=== PATIENT | female | born 1955 | race Caucasian/White ===

== ENCOUNTER 2019-05-28 06:15 | Inpatient (IN) | payer OTHER ==
[~2019-05-28] VITALS: Ht 154.9 cm; Wt 88.0 kg
[2019-05-28] MEDS ORDERED: CEFAZOLIN 1 GM IVPB PREMIX 50 ML IV ONE (07:00)
[2019-05-28] MEDS ORDERED: cefOXitin SODIUM 2 GM in D5W 100 ML IV ONE (07:00)
[2019-05-28] MEDS ORDERED: ALVIMOPAN 12 MG CAPSULE PO ONE (07:00)
[2019-05-28] MEDS ORDERED: FENT2mCg/mL-ROPIVA0.2%/NS EPID 200 ML EP SCH (08:30)
[2019-05-28] MEDS ORDERED: fentaNYL CITRATE/PF 100 MCG/2 ML AMP IVP PRN ×2 (08:30)
[2019-05-28] MEDS ORDERED: ONDANSETRON HCL 4 MG/2 ML VIAL IVP PRN ×2 (08:30→15:30)
[2019-05-28] MEDS ORDERED: NALBUPHINE HCL 10 MG/ML AMP IVP PRN (08:30)
[2019-05-28] MEDS ORDERED: NALOXONE HCL 0.4 MG/ML AMP (NARCAN) IVP PRN (08:30)
[2019-05-28] MEDS ORDERED: DIPHENHYDRAMINE INJ 50 MG/ML VIAL IVP PRN (08:30)
[2019-05-28] MEDS ORDERED: ALBMDI INH (08:52)
[2019-05-28] MEDS ORDERED: MONT10TA22 PO (08:52)
[2019-05-28] MEDS ORDERED: FLUT12AE5 INH (08:52)
[2019-05-28] MEDS ORDERED: METOCLOPRAMIDE HCL 10 MG/2 ML VIAL IVP ONE (08:56)
[2019-05-28] MEDS ORDERED: EPINEPHrine 1 MG/ML AMP SUBCUT ONE (08:56)
[2019-05-28] MEDS ORDERED: SEVOFLURANE 15 MIN GAS INH ONE ×2 (08:56→12:30)
[2019-05-28] MEDS ORDERED: PHENYLEPHRINE HCL 10 MG/ML VIAL (NEOSYNEPHRINE) IV ONE (08:56)
[2019-05-28] MEDS ORDERED: ROCURONIUM BROMIDE 10 MG/ML (ZEMURON) IV ONE ×2 (08:56→12:30)
[2019-05-28] MEDS ORDERED: KETOROLAC TROMETHAMINE 30 MG VIAL IVP ONE (08:56)
[2019-05-28] MEDS ORDERED: LR 1,000 ML IV.SOLN IV ONE ×2 (08:56→12:30)
[2019-05-28] MEDS ORDERED: ROPIVACAINE HCL/PF 0.2% EPIDURAL 200 ML PLAST..BAG EP ONE (08:56)
[2019-05-28] MEDS ORDERED: GLYCOPYRROLATE 0.2 MG/ML VIAL IJ ONE (08:56)
[2019-05-28] MEDS ORDERED: PROPOFOL 200MG/ 20ML VIAL (DIPRIVAN) IV ONE ×2 (08:56→12:30)
[2019-05-28] MEDS ORDERED: FENT2mCg/mL-ROPIVA0.2%/NS EPID 200 ML EP ONE (12:30)
[2019-05-28] MEDS ORDERED: NS 1000 ML IV.SOLN IV ONE (12:30)
[2019-05-28] MEDS ORDERED: WATER FOR IRRIGATION,STERILE 1,000 ML IRRIG.SOLN IR ONE (12:30)
[2019-05-28] MEDS ORDERED: PIPERACILLIN/TAZOBACTAM 3.375 GM/VIAL (ZOSYN) IV ONE (12:30)
[2019-05-28] MEDS ORDERED: NS IRRIG SOLN 1000 ML IR ONE (12:30)
[2019-05-28] MEDS ORDERED: fentaNYL CITRATE/PF 100 MCG/2 ML AMP IVP ONE (12:30)
[2019-05-28] MEDS ORDERED: MIDAZOLAM HCL 5 MG/5 ML VIAL IVP ONE (12:30)
[2019-05-28] MEDS ORDERED: POLYMYXIN 500,000/BACIT.10,000 UNITS in NS IRR 1 L IR ONE ×2 (14:27→14:32)
[2019-05-28] MEDS ORDERED: ACETAMINOPHEN 325 MG TABLET PO PRN (15:30)
[2019-05-28] MEDS ORDERED: HYDROcodone/ACETAMIN 5-325 MG TAB (NORCO/ VICODIN) PO PRN (15:30)
[2019-05-28 15:49] LABS: HEMATOCRIT 36.5 % (36-48); HEMOGLOBIN 11.6 g/dL (12.0-16.0)
[2019-05-28] MEDS ORDERED: ONDANSETRON HCL 4 MG/2 ML VIAL ONE (16:01)
[2019-05-28 16:03] LABS: CALCIUM 8.1 mg/dL (8.4-11.0); CREATININE 0.88 mg/dL (0.55-1.30); POTASSIUM 4.6 mmol/L (3.5-5.1)
[2019-05-28 16:45] VITALS: BP_SYST 111
[2019-05-28] MEDS: D5/0.45 NS 1,000 ML IV SCH (17:05)
[2019-05-28 17:22] VITALS: BP_SYST 111
[2019-05-28] MEDS: cefOXitin SODIUM 2 GM in D5W 100 ML IV SCH (21:31)
[2019-05-28] MEDS: FAMOTIDINE PF 20 MG/2 ML VIAL IVP SCH (21:32)
[2019-05-28] MEDS: ALVIMOPAN 12 MG CAPSULE PO SCH (21:32)
[2019-05-29] MEDS: HYDROmorphone 1 MG INJ. 1 MG/ML AMPUL IVP PRN ×4 (00:08→22:54)
[2019-05-29 00:34] VITALS: BP_SYST 90
[2019-05-29] MEDS: D5/0.45 NS 1,000 ML IV SCH ×3 (03:10→18:09)
[2019-05-29 05:56] LABS: BASOPHILS % (AUTO) 0.2 % (0.0-2.0); HEMATOCRIT 37.5 % (36-48); LYMPHOCYTES # (AUTO) 0.7 K/uL (1.0-5.5); LYMPHOCYTES % (AUTO) 6.6 % (20.5-51.5); MEAN CORPUSCULAR HEMOGLOBIN 25 pg (27-31); MEAN CORPUSCULAR HGB CONC 32 % (32-36); MEAN CORPUSCULAR VOLUME 78 fL (79.0-98.0); MONOCYTES # (AUTO) 0.8 K/uL (0.0-1.0); MONOCYTES % (AUTO) 7.4 % (1.7-9.3); NEUTROPHILS # (AUTO) 9.1 K/uL (1.8-7.7); NEUTROPHILS % (AUTO) 85.8 % (40.0-70.0); PLATELET COUNT (AUTO) 239 K/uL (130-430); RED BLOOD CELL COUNT(AUTO) 4.83 MIL/uL (4.2-6.2); RED CELL DISTRIBUTION WIDTH 17.5 % (9.0-15.0); WHITE BLOOD COUNT (AUTO) 10.6 K/uL (4.8-10.8)
[2019-05-29 06:16] LABS: ALBUMIN 2.2 g/dL (3.4-4.8); CREATININE 1.16 mg/dL (0.55-1.30); POTASSIUM 4.3 mmol/L (3.5-5.1); TOTAL BILIRUBIN 0.6 mg/dL (0.0-1.0)
[2019-05-29 07:56] VITALS: BP_SYST 86
[2019-05-29] MEDS: ALVIMOPAN 12 MG CAPSULE PO SCH ×2 (09:11→20:05)
[2019-05-29] MEDS: ENOXAPARIN SODIUM 30 MG/0.3 ML SYRINGE SUBCUT SCH (09:11)
[2019-05-29] MEDS: FAMOTIDINE PF 20 MG/2 ML VIAL IVP SCH ×2 (09:11→20:05)
[2019-05-29] MEDS: cefOXitin SODIUM 2 GM in D5W 100 ML IV SCH (09:12)
[2019-05-29] MEDS: ADVAIR HFA INH SCH (09:15)
[2019-05-29] MEDS: LR 1,000 ML IV SCH ×3 (09:53→13:15)
[2019-05-29] MEDS ORDERED: ALBUTEROL SULFATE 0.083% 2.5 MG/3 ML VIAL.NEB INH SCH (10:00)
[2019-05-29] MEDS ORDERED: ALBUTEROL SULFATE 0.083% 2.5 MG/3 ML VIAL.NEB INH ONE (10:22)
[2019-05-29] MEDS: ALBUTEROL SULFATE 0.083% 2.5 MG/3 ML VIAL.NEB INH SCH ×5 (11:30→23:00)
[2019-05-29] MEDS: IPRATROPIUM BROM 0.5 MG/2.5 ML VIAL.NEB (ATROVENT) INH SCH ×4 (11:30→23:00)
[2019-05-29 12:00] VITALS: BP_SYST 110
[2019-05-29 16:17] VITALS: BP_SYST 102
[2019-05-29 20:00] VITALS: BP_SYST 105
[2019-05-29] MEDS: MONTELUKAST 10 MG TABLET PO SCH (20:05)
[2019-05-30 00:56] VITALS: BP_SYST 120
[2019-05-30] MEDS: D5/0.45 NS 1,000 ML IV SCH ×2 (02:35→14:10)
[2019-05-30] MEDS: HYDROmorphone 1 MG INJ. 1 MG/ML AMPUL IVP PRN ×7 (02:39→21:39)
[2019-05-30] MEDS: ALBUTEROL SULFATE 0.083% 2.5 MG/3 ML VIAL.NEB INH SCH ×5 (03:00→19:53)
[2019-05-30] MEDS: IPRATROPIUM BROM 0.5 MG/2.5 ML VIAL.NEB (ATROVENT) INH SCH ×5 (03:00→19:53)
[2019-05-30 06:30] LABS: ALBUMIN 1.8 g/dL (3.4-4.8); CALCIUM 7.8 mg/dL (8.4-11.0); CREATININE 1.08 mg/dL (0.55-1.30); POTASSIUM 4.2 mmol/L (3.5-5.1); TOTAL BILIRUBIN 0.6 mg/dL (0.0-1.0)
[2019-05-30 07:17] LABS: BASOPHILS % (AUTO) 0.1 % (0.0-2.0); HEMATOCRIT 35.1 % (36-48); HEMOGLOBIN 11.1 g/dL (12.0-16.0); LYMPHOCYTES # (AUTO) 1.2 K/uL (1.0-5.5); LYMPHOCYTES % (AUTO) 8.4 % (20.5-51.5); MEAN CORPUSCULAR HEMOGLOBIN 24 pg (27-31); MEAN CORPUSCULAR HGB CONC 32 % (32-36); MEAN CORPUSCULAR VOLUME 77 fL (79.0-98.0); MONOCYTES # (AUTO) 1.1 K/uL (0.0-1.0); MONOCYTES % (AUTO) 7.7 % (1.7-9.3); NEUTROPHILS # (AUTO) 11.5 K/uL (1.8-7.7); NEUTROPHILS % (AUTO) 83.8 % (40.0-70.0); PLATELET COUNT (AUTO) 236 K/uL (130-430); RED BLOOD CELL COUNT(AUTO) 4.55 MIL/uL (4.2-6.2); RED CELL DISTRIBUTION WIDTH 17.7 % (9.0-15.0)
[2019-05-30 07:18] LABS: WHITE BLOOD COUNT (AUTO) 13.7 K/uL (4.8-10.8)
[2019-05-30 08:00] VITALS: BP_SYST 115
[2019-05-30] MEDS: ALVIMOPAN 12 MG CAPSULE PO SCH ×2 (08:29→21:20)
[2019-05-30] MEDS: FAMOTIDINE PF 20 MG/2 ML VIAL IVP SCH ×2 (08:29→21:21)
[2019-05-30] MEDS: ENOXAPARIN SODIUM 30 MG/0.3 ML SYRINGE SUBCUT SCH (08:30)
[2019-05-30] MEDS: ADVAIR HFA INH SCH (08:30)
[2019-05-30 13:03] VITALS: BP_SYST 139
[2019-05-30 16:11] VITALS: BP_SYST 119
[2019-05-30] MEDS: MONTELUKAST 10 MG TABLET PO SCH (21:20)
[2019-05-31] MEDS: D5/0.45 NS 1,000 ML IV SCH ×3 (00:08→17:02)
[2019-05-31 00:50] VITALS: BP_SYST 129
[2019-05-31] MEDS: HYDROmorphone 1 MG INJ. 1 MG/ML AMPUL IVP PRN ×5 (00:53→21:24)
[2019-05-31 05:40] LABS: BASOPHILS % (AUTO) 0.1 % (0.0-2.0); EOSINOPHILS % (AUTO) 0.1 % (0.0-4.0); HEMATOCRIT 28.2 % (36-48); HEMOGLOBIN 9.3 g/dL (12.0-16.0); LYMPHOCYTES # (AUTO) 0.8 K/uL (1.0-5.5); LYMPHOCYTES % (AUTO) 7.6 % (20.5-51.5); MEAN CORPUSCULAR HEMOGLOBIN 25 pg (27-31); MEAN CORPUSCULAR HGB CONC 33 % (32-36); MEAN CORPUSCULAR VOLUME 76 fL (79.0-98.0); MONOCYTES # (AUTO) 0.8 K/uL (0.0-1.0); MONOCYTES % (AUTO) 7.6 % (1.7-9.3); NEUTROPHILS # (AUTO) 8.8 K/uL (1.8-7.7); NEUTROPHILS % (AUTO) 84.6 % (40.0-70.0); PLATELET COUNT (AUTO) 186 K/uL (130-430); RED BLOOD CELL COUNT(AUTO) 3.69 MIL/uL (4.2-6.2); RED CELL DISTRIBUTION WIDTH 17.6 % (9.0-15.0); WHITE BLOOD COUNT (AUTO) 10.4 K/uL (4.8-10.8)
[2019-05-31 05:53] LABS: ALBUMIN 1.5 g/dL (3.4-4.8); CALCIUM 7.9 mg/dL (8.4-11.0); CREATININE 0.56 mg/dL (0.55-1.30); POTASSIUM 3.8 mmol/L (3.5-5.1); TOTAL BILIRUBIN 0.6 mg/dL (0.0-1.0)
[2019-05-31] MEDS: IPRATROPIUM BROM 0.5 MG/2.5 ML VIAL.NEB (ATROVENT) INH SCH ×5 (07:31→23:00)
[2019-05-31] MEDS: ALBUTEROL SULFATE 0.083% 2.5 MG/3 ML VIAL.NEB INH SCH ×5 (07:31→23:00)
[2019-05-31 08:00] VITALS: BP_SYST 122
[2019-05-31] MEDS: ALVIMOPAN 12 MG CAPSULE PO SCH ×3 (08:22→21:24)
[2019-05-31] MEDS: FAMOTIDINE PF 20 MG/2 ML VIAL IVP SCH ×2 (08:32→21:24)
[2019-05-31] MEDS: ENOXAPARIN SODIUM 30 MG/0.3 ML SYRINGE SUBCUT SCH (08:33)
[2019-05-31] MEDS: ADVAIR HFA INH SCH (09:00)
[2019-05-31] MEDS: KETOROLAC TROMETHAMINE 30 MG VIAL IVP PRN (11:51)
[2019-05-31 12:38] VITALS: BP_SYST 139
[2019-05-31 16:58] VITALS: BP_SYST 139
[2019-05-31 17:31] VITALS: BP_SYST 137
[2019-05-31] MEDS: VENTOLIN HFA INH PRN (17:32)
[2019-05-31 19:42] VITALS: BP_SYST 146
[2019-05-31] MEDS: HYDROcodone/ACETAMIN 5-325 MG TAB (NORCO/ VICODIN) PO PRN ×2 (19:42→23:52)
[2019-05-31] MEDS: MONTELUKAST 10 MG TABLET PO SCH (21:24)
[2019-06-01 00:37] VITALS: BP_SYST 122
[2019-06-01] MEDS: IPRATROPIUM BROM 0.5 MG/2.5 ML VIAL.NEB (ATROVENT) INH SCH ×6 (03:00→23:00)
[2019-06-01] MEDS: ALBUTEROL SULFATE 0.083% 2.5 MG/3 ML VIAL.NEB INH SCH ×6 (03:00→23:00)
[2019-06-01] MEDS: HYDROmorphone 1 MG INJ. 1 MG/ML AMPUL IVP PRN ×2 (03:02→08:59)
[2019-06-01] MEDS: D5/0.45 NS 1,000 ML IV SCH ×3 (03:02→23:20)
[2019-06-01] MEDS: HYDROcodone/ACETAMIN 5-325 MG TAB (NORCO/ VICODIN) PO PRN (06:22)
[2019-06-01] MEDS: ALVIMOPAN 12 MG CAPSULE PO SCH ×2 (08:58→20:41)
[2019-06-01] MEDS: FAMOTIDINE PF 20 MG/2 ML VIAL IVP SCH ×2 (08:59→20:41)
[2019-06-01] MEDS: VENTOLIN HFA INH PRN ×2 (09:00→09:02)
[2019-06-01] MEDS: ENOXAPARIN SODIUM 30 MG/0.3 ML SYRINGE SUBCUT SCH (09:09)
[2019-06-01 12:50] VITALS: BP_SYST 119
[2019-06-01] MEDS: KETOROLAC TROMETHAMINE 30 MG VIAL IVP PRN ×2 (13:25→20:50)
[2019-06-01 18:30] VITALS: BP_SYST 124
[2019-06-01 20:00] VITALS: BP_SYST 123
[2019-06-01] MEDS: MONTELUKAST 10 MG TABLET PO SCH (20:41)
[2019-06-02] VITALS (14 sets, daily range): BP systolic 105–214
[2019-06-02] MEDS: KETOROLAC TROMETHAMINE 30 MG VIAL IVP PRN ×2 (02:54→08:56)
[2019-06-02] MEDS: IPRATROPIUM BROM 0.5 MG/2.5 ML VIAL.NEB (ATROVENT) INH SCH ×6 (03:00→23:27)
[2019-06-02] MEDS: ALBUTEROL SULFATE 0.083% 2.5 MG/3 ML VIAL.NEB INH SCH ×6 (03:00→23:28)
[2019-06-02 06:09] LABS: HEMATOCRIT 28.9 % (36-48); HEMOGLOBIN 9.8 g/dL (12.0-16.0); MEAN CORPUSCULAR HEMOGLOBIN 26 pg (27-31); MEAN CORPUSCULAR HGB CONC 34 % (32-36); MEAN CORPUSCULAR VOLUME 77 fL (79.0-98.0); PLATELET COUNT (AUTO) 335 K/uL (130-430); RED BLOOD CELL COUNT(AUTO) 3.75 MIL/uL (4.2-6.2); RED CELL DISTRIBUTION WIDTH 18.8 % (9.0-15.0)
[2019-06-02 06:20] LABS: ALBUMIN 1.5 g/dL (3.4-4.8); CREATININE 1.32 mg/dL (0.55-1.30); POTASSIUM 3.8 mmol/L (3.5-5.1); TOTAL BILIRUBIN 0.8 mg/dL (0.0-1.0)
[2019-06-02 07:21] LABS: WHITE BLOOD COUNT (AUTO) 10.9 K/uL (4.8-10.8)
[2019-06-02] MEDS: ALVIMOPAN 12 MG CAPSULE PO SCH ×2 (08:56→20:50)
[2019-06-02] MEDS: FAMOTIDINE PF 20 MG/2 ML VIAL IVP SCH ×2 (08:56→20:50)
[2019-06-02] MEDS: ENOXAPARIN SODIUM 30 MG/0.3 ML SYRINGE SUBCUT SCH (08:57)
[2019-06-02] MEDS: ADVAIR HFA INH SCH (08:58)
[2019-06-02] MEDS ORDERED: NS 500 ML IV ONE (10:45)
[2019-06-02] MEDS ORDERED: MORPHINE 2 MG/ML INJ. SYRINGE IVP PRN (10:45)
[2019-06-02] MEDS ORDERED: DIATR MEGLU/DIATRIZ SOD 30 ML SOLUTION PO ONE (11:17)
[2019-06-02 11:50] LABS: ATYPICAL LYMPHOCYTES % 0 % (0-0); BAND % (MANUAL) 20 % (0-6); BASOPHILS % (MANUAL) 0 % (0-2); EOSINOPHILS % (MANUAL) 1 % (0-7); LYMPHOCYTES % (MANUAL) 15 % (20-46); MONOCYTES % (MANUAL) 13 % (0-11)
[2019-06-02 12:20] LABS: PROTHROMBIN TIME 10.4 SECS (9.5-12.5)
[2019-06-02] MEDS ORDERED: fentaNYL CITRATE/PF 100 MCG/2 ML AMP IVP PRN ×2 (13:45)
[2019-06-02] MEDS ORDERED: ONDANSETRON HCL 4 MG/2 ML VIAL IVP PRN (13:45)
[2019-06-02] MEDS: PIPERACILLIN/TAZO 4.5GM/DEX-IS 100 ML IV SCH ×2 (14:00→23:48)
[2019-06-02] MEDS ORDERED: HYDROcodone/ACETAMIN 5-325 MG TAB (NORCO/ VICODIN) PO PRN ×2 (16:15)
[2019-06-02] MEDS ORDERED: ACETAMINOPHEN 325 MG TABLET PO PRN (16:15)
[2019-06-02 16:55] LABS: HEMATOCRIT 28.6 % (36-48); HEMOGLOBIN 9.2 g/dL (12.0-16.0)
[2019-06-02 16:57] LABS: CALCIUM 7.7 mg/dL (8.4-11.0); CREATININE 0.8 mg/dL (0.55-1.30)
[2019-06-02] MEDS ORDERED: LABETALOL 100 MG/ 20ML VIAL IVP ONE (17:00)
[2019-06-02] MEDS ORDERED: LABETALOL 100 MG/ 20ML VIAL ONE (17:07)
[2019-06-02] MEDS: HYDROmorphone 1 MG INJ. 1 MG/ML AMPUL IVP PRN ×4 (18:16→22:40)
[2019-06-02] MEDS: D5/0.45 NS 1,000 ML IV SCH (18:27)
[2019-06-02] MEDS: metroNIDAZOLE 500 mg/NS 100 ML IV SCH (18:28)
[2019-06-02] MEDS ORDERED: metroNIDAZOLE 500 mg/NS 200 ML IV ONE (18:34)
[2019-06-02] MEDS: ONDANSETRON HCL 4 MG/2 ML VIAL IVP PRN (19:06)
[2019-06-02] MEDS: MONTELUKAST 10 MG TABLET PO SCH (20:51)
[2019-06-02] MEDS ORDERED: cefOXitin 1 GM IVPB PREMIX 100 ML IV ONE (21:48)
[2019-06-02] MEDS: cefOXitin SODIUM 2 GM in D5W 100 ML IV SCH (21:58)
[2019-06-02] MEDS ORDERED: PIPERACILLIN/TAZOBACTAM 4.5 GM/VIAL (ZOSYN) IV ONE (23:29)
[2019-06-03] VITALS (30 sets, daily range): BP systolic 112–158
[2019-06-03] MEDS: LORazepam 2 MG/ML VIAL IVP PRN ×3 (00:59→18:51)
[2019-06-03] MEDS: metroNIDAZOLE 500 mg/NS 100 ML IV SCH (01:10)
[2019-06-03] MEDS: HYDROmorphone 1 MG INJ. 1 MG/ML AMPUL IVP PRN ×2 (02:48→08:21)
[2019-06-03 05:34] LABS: BASOPHILS % (AUTO) 0.2 % (0.0-2.0); EOSINOPHILS # (AUTO) 0.1 K/uL (0.0-0.4); EOSINOPHILS % (AUTO) 0.4 % (0.0-4.0); HEMATOCRIT 24.1 % (36-48); LYMPHOCYTES # (AUTO) 0.9 K/uL (1.0-5.5); LYMPHOCYTES % (AUTO) 6.6 % (20.5-51.5); MEAN CORPUSCULAR HEMOGLOBIN 25 pg (27-31); MEAN CORPUSCULAR HGB CONC 33 % (32-36); MEAN CORPUSCULAR VOLUME 77 fL (79.0-98.0); MONOCYTES # (AUTO) 0.8 K/uL (0.0-1.0); MONOCYTES % (AUTO) 5.5 % (1.7-9.3); NEUTROPHILS # (AUTO) 12.2 K/uL (1.8-7.7); NEUTROPHILS % (AUTO) 87.3 % (40.0-70.0); PLATELET COUNT (AUTO) 263 K/uL (130-430); RED BLOOD CELL COUNT(AUTO) 3.13 MIL/uL (4.2-6.2); RED CELL DISTRIBUTION WIDTH 18.6 % (9.0-15.0); WHITE BLOOD COUNT (AUTO) 13.9 K/uL (4.8-10.8)
[2019-06-03] MEDS: PIPERACILLIN/TAZO 4.5GM/DEX-IS 100 ML IV SCH ×3 (06:06→22:23)
[2019-06-03 06:08] LABS: CALCIUM 7.2 mg/dL (8.4-11.0); CREATININE 1.04 mg/dL (0.55-1.30); TOTAL BILIRUBIN 0.7 mg/dL (0.0-1.0)
[2019-06-03] MEDS: IPRATROPIUM BROM 0.5 MG/2.5 ML VIAL.NEB (ATROVENT) INH SCH ×3 (07:25→19:47)
[2019-06-03] MEDS: ALBUTEROL SULFATE 0.083% 2.5 MG/3 ML VIAL.NEB INH SCH ×3 (07:25→19:47)
[2019-06-03] MEDS: ENOXAPARIN SODIUM 30 MG/0.3 ML SYRINGE SUBCUT SCH (08:27)
[2019-06-03] MEDS ORDERED: FUROSEMIDE 20 MG/2 ML VIAL IVP ONE (08:45)
[2019-06-03] MEDS: cefOXitin SODIUM 2 GM in D5W 100 ML IV SCH (08:51)
[2019-06-03] MEDS: ONDANSETRON HCL 4 MG/2 ML VIAL IVP PRN ×4 (08:53→18:10)
[2019-06-03] MEDS: ALVIMOPAN 12 MG CAPSULE PO SCH ×2 (09:00→20:34)
[2019-06-03] MEDS: FAMOTIDINE PF 20 MG/2 ML VIAL IVP SCH ×2 (09:00→20:34)
[2019-06-03] MEDS: PANTOPRAZOLE SODIUM 40 MG TAB PO SCH (09:00)
[2019-06-03] MEDS: ADVAIR HFA INH SCH (09:00)
[2019-06-03] MEDS ORDERED: *TPN PER PHARMACY XX PRN (11:30)
[2019-06-03] MEDS ORDERED: DEXTROSE 50% JECT 50 ML DISP.SYRIN IVP PRN (11:30)
[2019-06-03] MEDS: D5/0.45 NS 1,000 ML IV SCH ×2 (11:58→12:32)
[2019-06-03] MEDS ORDERED: FUROSEMIDE 40 MG/4 ML VIAL IVP ONE (12:30)
[2019-06-03] MEDS: MORPHINE 2 MG/ML INJ. SYRINGE IVP PRN ×3 (15:12→21:11)
[2019-06-03] MEDS ORDERED: MORPHINE 4 MG/ML INJ. SYRINGE IVP ONE (15:15)
[2019-06-03] MEDS ORDERED: MORPHINE 2 MG/ML INJ. SYRINGE IVP PRN (15:15)
[2019-06-03] MEDS ORDERED: MORPHINE I.V. DRIP 100 ML IV PRN (15:15)
[2019-06-03] MEDS ORDERED: MORPHINE PCA 50 mg/50 mL NS IV PRN (15:30)
[2019-06-03] MEDS ORDERED: NALOXONE HCL 0.4 MG/ML AMP (NARCAN) IVP PRN (15:30)
[2019-06-03] MEDS ORDERED: MORPHINE PCA 50 mg/50 mL NS 50 ML IV PRN (15:30)
[2019-06-03] MEDS ORDERED: TPN CENTRAL IV SCH ×8 (18:00)
[2019-06-03] MEDS ORDERED: MVI IV SCH ×8 (18:00)
[2019-06-03] MEDS ORDERED: POTASSIUM CHLORIDE IV SCH ×8 (18:00)
[2019-06-03] MEDS ORDERED: SODIUM ACETATE IV SCH ×8 (18:00)
[2019-06-03] MEDS ORDERED: [UNRECOGNIZED DRUG - OTHER] IV SCH ×8 (18:00)
[2019-06-03 20:09] LABS: BILIRUBIN,URINE NEGATIVE (NEGATIVE); CLARITY/URINE CLEAR (CLEAR); COLOR,URINE YELLOW (YELLOW); GLUCOSE,URINE NEGATIVE (NEGATIVE); KETONES,URINE NEGATIVE (NEGATIVE); LEUKOCYTE ESTERASE ,URINE NEGATIVE (NEGATIVE); NITRITE, URINE NEGATIVE (NEGATIVE); PH,URINE 5.5 (5.0-8.0); PROTEIN URINE NEGATIVE (NEGATIVE); UROBILINOGEN,URINE 0.2 (0.2-1.0)
[2019-06-03 20:10] LABS: BLOOD, URINE TRACE (NEGATIVE)
[2019-06-03] MEDS: MONTELUKAST 10 MG TABLET PO SCH (20:34)
[2019-06-03 20:59] LABS: BACTERIA,URINE RARE /HPF (None Seen); MUCUS,URINE 1+ /LPF (None Seen); WBC,URINE 0-3 /HPF (0-3)
[2019-06-04] VITALS (24 sets, daily range): BP systolic 112–164
[2019-06-04] MEDS: MORPHINE 2 MG/ML INJ. SYRINGE IVP PRN ×5 (01:11→18:18)
[2019-06-04] MEDS: ONDANSETRON HCL 4 MG/2 ML VIAL IVP PRN ×2 (01:11→09:26)
[2019-06-04] MEDS: ALBUTEROL SULFATE 0.083% 2.5 MG/3 ML VIAL.NEB INH SCH ×4 (01:25→18:56)
[2019-06-04] MEDS: IPRATROPIUM BROM 0.5 MG/2.5 ML VIAL.NEB (ATROVENT) INH SCH ×4 (01:25→18:56)
[2019-06-04] MEDS: PIPERACILLIN/TAZO 4.5GM/DEX-IS 100 ML IV SCH ×2 (05:23→14:36)
[2019-06-04] MEDS: ALBUTEROL SULFATE 0.083% 2.5 MG/3 ML VIAL.NEB INH PRN ×3 (05:24→21:34)
[2019-06-04] MEDS: IPRATROPIUM BROM 0.5 MG/2.5 ML VIAL.NEB (ATROVENT) INH PRN ×3 (05:24→21:34)
[2019-06-04] MEDS: INSULIN REGULAR, HUMAN 100 UNITS/ML, 10 ML VIAL (humuLIN R) SUBCUT PRN ×3 (05:32→18:28)
[2019-06-04 05:39] LABS: HEMATOCRIT 29.7 % (36-48); HEMOGLOBIN 9.8 g/dL (12.0-16.0); MEAN CORPUSCULAR HEMOGLOBIN 27 pg (27-31); MEAN CORPUSCULAR HGB CONC 33 % (32-36); MEAN CORPUSCULAR VOLUME 80 fL (79.0-98.0); PLATELET COUNT (AUTO) 267 K/uL (130-430); RED CELL DISTRIBUTION WIDTH 19.5 % (9.0-15.0); WHITE BLOOD COUNT (AUTO) 18.8 K/uL (4.8-10.8)
[2019-06-04] MEDS: LORazepam 2 MG/ML VIAL IVP PRN ×2 (05:42→12:00)
[2019-06-04 05:56] LABS: CALCIUM 7.4 mg/dL (8.4-11.0); CREATININE 0.82 mg/dL (0.55-1.30); PHOSPHORUS 2.8 mg/dL (2.7-4.5); TOTAL BILIRUBIN 0.8 mg/dL (0.0-1.0)
[2019-06-04 06:32] LABS: BAND % (MANUAL) 5 % (0-6); BASOPHILS % (MANUAL) 0 % (0-2); EOSINOPHILS % (MANUAL) 1 % (0-7); LYMPHOCYTES % (MANUAL) 6 % (20-46); METAMYELOCYTES % 2 % (0-0); MONOCYTES % (MANUAL) 1 % (0-11)
[2019-06-04] MEDS ORDERED: POTASSIUM CHLORIDE 40 MEQ in D5W 250 ML IV ONE (09:00)
[2019-06-04] MEDS: PANTOPRAZOLE SODIUM 40 MG TAB PO SCH (09:02)
[2019-06-04] MEDS: ENOXAPARIN SODIUM 30 MG/0.3 ML SYRINGE SUBCUT SCH (09:02)
[2019-06-04] MEDS: ALVIMOPAN 12 MG CAPSULE PO SCH (09:02)
[2019-06-04] MEDS: FAMOTIDINE PF 20 MG/2 ML VIAL IVP SCH (09:02)
[2019-06-04] MEDS: ADVAIR HFA INH SCH (10:24)
[2019-06-04] MEDS: VENTOLIN HFA INH PRN (12:01)
[2019-06-04] MEDS: FLUCONAZOLE 200 mg/ NS 100 ML IV SCH (12:10)
[2019-06-04] MEDS: metroNIDAZOLE 500 mg/NS 100 ML IV SCH (13:31)
[2019-06-04] MEDS ORDERED: [UNRECOGNIZED DRUG - OTHER] IV SCH ×8 (18:00)
[2019-06-04] MEDS ORDERED: SODIUM ACETATE IV SCH ×8 (18:00)
[2019-06-04] MEDS ORDERED: POTASSIUM CHLORIDE IV SCH ×8 (18:00)
[2019-06-04] MEDS ORDERED: TPN CENTRAL IV SCH ×8 (18:00)
[2019-06-04] MEDS ORDERED: MVI IV SCH ×8 (18:00)
[2019-06-04] MEDS: FAT EMULSIONS 250 ML IV SCH (18:25)
[2019-06-05] VITALS (14 sets, daily range): BP systolic 148–190
[2019-06-05] MEDS: ALBUTEROL SULFATE 0.083% 2.5 MG/3 ML VIAL.NEB INH SCH ×4 (00:55→19:45)
[2019-06-05] MEDS: IPRATROPIUM BROM 0.5 MG/2.5 ML VIAL.NEB (ATROVENT) INH SCH ×4 (00:56→19:45)
[2019-06-05] MEDS: MONTELUKAST 10 MG TABLET PO SCH ×2 (01:05→20:05)
[2019-06-05] MEDS: PIPERACILLIN/TAZO 4.5GM/DEX-IS 100 ML IV SCH ×4 (01:05→22:30)
[2019-06-05] MEDS: metroNIDAZOLE 500 mg/NS 100 ML IV SCH ×2 (01:06→13:55)
[2019-06-05] MEDS: ALVIMOPAN 12 MG CAPSULE PO SCH (01:06)
[2019-06-05] MEDS: FAMOTIDINE PF 20 MG/2 ML VIAL IVP SCH ×3 (01:06→20:05)
[2019-06-05] MEDS: INSULIN REGULAR, HUMAN 100 UNITS/ML, 10 ML VIAL (humuLIN R) SUBCUT PRN ×2 (01:08→05:42)
[2019-06-05] MEDS: MORPHINE 2 MG/ML INJ. SYRINGE IVP PRN ×8 (01:31→22:30)
[2019-06-05] MEDS: IPRATROPIUM BROM 0.5 MG/2.5 ML VIAL.NEB (ATROVENT) INH PRN ×2 (04:39→23:14)
[2019-06-05] MEDS: ALBUTEROL SULFATE 0.083% 2.5 MG/3 ML VIAL.NEB INH PRN ×2 (04:39→23:14)
[2019-06-05 09:01] LABS: BASOPHILS % (AUTO) 0.1 % (0.0-2.0); EOSINOPHILS # (AUTO) 0.1 K/uL (0.0-0.4); EOSINOPHILS % (AUTO) 0.4 % (0.0-4.0); HEMATOCRIT 29.9 % (36-48); HEMOGLOBIN 9.8 g/dL (12.0-16.0); LYMPHOCYTES # (AUTO) 1.2 K/uL (1.0-5.5); LYMPHOCYTES % (AUTO) 6.6 % (20.5-51.5); MEAN CORPUSCULAR HEMOGLOBIN 26 pg (27-31); MEAN CORPUSCULAR HGB CONC 33 % (32-36); MEAN CORPUSCULAR VOLUME 80 fL (79.0-98.0); MONOCYTES # (AUTO) 1.2 K/uL (0.0-1.0); MONOCYTES % (AUTO) 6.6 % (1.7-9.3); NEUTROPHILS # (AUTO) 15.7 K/uL (1.8-7.7); NEUTROPHILS % (AUTO) 86.3 % (40.0-70.0); PLATELET COUNT (AUTO) 279 K/uL (130-430); RED BLOOD CELL COUNT(AUTO) 3.72 MIL/uL (4.2-6.2); RED CELL DISTRIBUTION WIDTH 19.9 % (9.0-15.0); WHITE BLOOD COUNT (AUTO) 18.2 K/uL (4.8-10.8)
[2019-06-05] MEDS: PANTOPRAZOLE SODIUM 40 MG TAB PO SCH (09:02)
[2019-06-05] MEDS: ENOXAPARIN SODIUM 30 MG/0.3 ML SYRINGE SUBCUT SCH (09:04)
[2019-06-05 09:16] LABS: ALBUMIN 1.1 g/dL (3.4-4.8); CALCIUM 7.4 mg/dL (8.4-11.0); CREATININE 0.61 mg/dL (0.55-1.30); PHOSPHORUS 1.9 mg/dL (2.7-4.5); POTASSIUM 3.2 mmol/L (3.5-5.1); TOTAL BILIRUBIN 0.7 mg/dL (0.0-1.0)
[2019-06-05] MEDS: ADVAIR HFA INH SCH (11:43)
[2019-06-05] MEDS: FLUCONAZOLE 200 mg/ NS 100 ML IV SCH (12:18)
[2019-06-05] MEDS ORDERED: POTASSIUM CHLORIDE 40 MEQ in NS 250 ML IV ONE (12:45)
[2019-06-05] MEDS: FAT EMULSIONS 250 ML IV SCH (17:54)
[2019-06-05] MEDS ORDERED: SODIUM ACETATE IV SCH ×9 (18:00)
[2019-06-05] MEDS ORDERED: POTASSIUM CHLORIDE IV SCH ×9 (18:00)
[2019-06-05] MEDS ORDERED: TPN CENTRAL IV SCH ×9 (18:00)
[2019-06-05] MEDS ORDERED: [UNRECOGNIZED DRUG - OTHER] IV SCH ×9 (18:00)
[2019-06-05] MEDS ORDERED: K PHOS IV SCH ×9 (18:00)
[2019-06-06] VITALS (7 sets, daily range): BP systolic 142–163
[2019-06-06] MEDS: MORPHINE 2 MG/ML INJ. SYRINGE IVP PRN ×7 (00:53→20:21)
[2019-06-06] MEDS: metroNIDAZOLE 500 mg/NS 100 ML IV SCH ×2 (00:53→14:21)
[2019-06-06] MEDS: INSULIN REGULAR, HUMAN 100 UNITS/ML, 10 ML VIAL (humuLIN R) SUBCUT PRN ×4 (01:03→23:04)
[2019-06-06] MEDS: ALBUTEROL SULFATE 0.083% 2.5 MG/3 ML VIAL.NEB INH PRN ×2 (03:55→16:51)
[2019-06-06] MEDS: IPRATROPIUM BROM 0.5 MG/2.5 ML VIAL.NEB (ATROVENT) INH PRN ×2 (03:55→16:51)
[2019-06-06] MEDS: PIPERACILLIN/TAZO 4.5GM/DEX-IS 100 ML IV SCH (06:10)
[2019-06-06 06:33] LABS: ALBUMIN 1.1 g/dL (3.4-4.8); CALCIUM 7.6 mg/dL (8.4-11.0); CREATININE 0.65 mg/dL (0.55-1.30); PHOSPHORUS 1.9 mg/dL (2.7-4.5); POTASSIUM 3.7 mmol/L (3.5-5.1); TOTAL BILIRUBIN 0.5 mg/dL (0.0-1.0)
[2019-06-06 06:37] LABS: HEMATOCRIT 29.6 % (36-48); HEMOGLOBIN 9.6 g/dL (12.0-16.0); MEAN CORPUSCULAR HEMOGLOBIN 26 pg (27-31); MEAN CORPUSCULAR HGB CONC 33 % (32-36); MEAN CORPUSCULAR VOLUME 81 fL (79.0-98.0); PLATELET COUNT (AUTO) 280 K/uL (130-430); RED BLOOD CELL COUNT(AUTO) 3.65 MIL/uL (4.2-6.2); RED CELL DISTRIBUTION WIDTH 19.8 % (9.0-15.0); WHITE BLOOD COUNT (AUTO) 14.8 K/uL (4.8-10.8)
[2019-06-06] MEDS: IPRATROPIUM BROM 0.5 MG/2.5 ML VIAL.NEB (ATROVENT) INH SCH ×3 (07:27→20:07)
[2019-06-06] MEDS: ALBUTEROL SULFATE 0.083% 2.5 MG/3 ML VIAL.NEB INH SCH ×3 (07:27→20:07)
[2019-06-06 08:56] LABS: BAND % (MANUAL) 3 % (0-6); LYMPHOCYTES % (MANUAL) 13 % (20-46)
[2019-06-06 08:57] LABS: BASOPHILS % (MANUAL) 0 % (0-2); EOSINOPHILS % (MANUAL) 0 % (0-7); MONOCYTES % (MANUAL) 5 % (0-11)
[2019-06-06 08:58] LABS: BLASTS, MANUAL % 1 % (0-0)
[2019-06-06] MEDS ORDERED: CARVEDILOL 3.125 MG TABLET (COREG) PO SCH (09:00)
[2019-06-06] MEDS: FAMOTIDINE PF 20 MG/2 ML VIAL IVP SCH ×2 (09:38→20:15)
[2019-06-06] MEDS: ENOXAPARIN SODIUM 30 MG/0.3 ML SYRINGE SUBCUT SCH (09:38)
[2019-06-06] MEDS: PANTOPRAZOLE SODIUM 40 MG/VIAL (PROTONIX) IVP SCH (09:38)
[2019-06-06] MEDS: ADVAIR HFA INH SCH (09:42)
[2019-06-06] MEDS: cefTRIAXone 1 GM in D5W 50 ML IV SCH (11:51)
[2019-06-06] MEDS: FLUCONAZOLE 200 mg/ NS 100 ML IV SCH (12:57)
[2019-06-06] MEDS: MORPHINE 4 MG/ML INJ. SYRINGE IVP PRN ×2 (16:50→22:26)
[2019-06-06] MEDS: FAT EMULSIONS 250 ML IV SCH (17:10)
[2019-06-06] MEDS ORDERED: TPN CENTRAL IV SCH ×11 (18:00)
[2019-06-06] MEDS ORDERED: K PHOS IV SCH ×11 (18:00)
[2019-06-06] MEDS ORDERED: [UNRECOGNIZED DRUG - OTHER] IV SCH ×11 (18:00)
[2019-06-06] MEDS ORDERED: POTASSIUM CHLORIDE IV SCH ×11 (18:00)
[2019-06-06] MEDS ORDERED: SODIUM ACETATE IV SCH ×11 (18:00)
[2019-06-06] MEDS: MONTELUKAST 10 MG TABLET PO SCH (20:15)
[2019-06-06] MEDS: hydrALAZINE HCL 20 MG/ML VIAL IVP PRN (20:25)
[2019-06-07] VITALS (7 sets, daily range): BP systolic 132–182
[2019-06-07] MEDS: MORPHINE 2 MG/ML INJ. SYRINGE IVP PRN ×4 (01:19→21:10)
[2019-06-07] MEDS: metroNIDAZOLE 500 mg/NS 100 ML IV SCH ×2 (01:21→13:27)
[2019-06-07] MEDS: ALBUTEROL SULFATE 0.083% 2.5 MG/3 ML VIAL.NEB INH SCH ×4 (01:35→19:21)
[2019-06-07] MEDS: IPRATROPIUM BROM 0.5 MG/2.5 ML VIAL.NEB (ATROVENT) INH SCH ×4 (01:35→19:21)
[2019-06-07] MEDS: MORPHINE 4 MG/ML INJ. SYRINGE IVP PRN ×5 (04:00→23:06)
[2019-06-07] MEDS: hydrALAZINE HCL 20 MG/ML VIAL IVP PRN (04:09)
[2019-06-07] MEDS: INSULIN REGULAR, HUMAN 100 UNITS/ML, 10 ML VIAL (humuLIN R) SUBCUT PRN ×3 (05:45→23:25)
[2019-06-07 06:37] LABS: BASOPHILS % (AUTO) 0.2 % (0.0-2.0); EOSINOPHILS # (AUTO) 0.1 K/uL (0.0-0.4); EOSINOPHILS % (AUTO) 0.8 % (0.0-4.0); HEMATOCRIT 30.9 % (36-48); HEMOGLOBIN 10.1 g/dL (12.0-16.0); LYMPHOCYTES # (AUTO) 1.2 K/uL (1.0-5.5); LYMPHOCYTES % (AUTO) 8.4 % (20.5-51.5); MEAN CORPUSCULAR HEMOGLOBIN 27 pg (27-31); MEAN CORPUSCULAR HGB CONC 33 % (32-36); MEAN CORPUSCULAR VOLUME 82 fL (79.0-98.0); MONOCYTES # (AUTO) 0.9 K/uL (0.0-1.0); MONOCYTES % (AUTO) 6.6 % (1.7-9.3); NEUTROPHILS # (AUTO) 11.9 K/uL (1.8-7.7); PLATELET COUNT (AUTO) 290 K/uL (130-430); RED BLOOD CELL COUNT(AUTO) 3.79 MIL/uL (4.2-6.2); RED CELL DISTRIBUTION WIDTH 20.4 % (9.0-15.0); WHITE BLOOD COUNT (AUTO) 14.2 K/uL (4.8-10.8)
[2019-06-07 06:58] LABS: ALBUMIN 1.1 g/dL (3.4-4.8); CALCIUM 7.8 mg/dL (8.4-11.0); CREATININE 0.56 mg/dL (0.55-1.30); PHOSPHORUS 2.7 mg/dL (2.7-4.5); POTASSIUM 3.3 mmol/L (3.5-5.1); TOTAL BILIRUBIN 0.4 mg/dL (0.0-1.0)
[2019-06-07] MEDS ORDERED: hydrALAZINE HCL 20 MG/ML VIAL IVP PRN (07:15)
[2019-06-07] MEDS: IPRATROPIUM BROM 0.5 MG/2.5 ML VIAL.NEB (ATROVENT) INH PRN (08:09)
[2019-06-07] MEDS: ALBUTEROL SULFATE 0.083% 2.5 MG/3 ML VIAL.NEB INH PRN (08:10)
[2019-06-07] MEDS: FAMOTIDINE PF 20 MG/2 ML VIAL IVP SCH ×2 (08:15→21:15)
[2019-06-07] MEDS: PANTOPRAZOLE SODIUM 40 MG/VIAL (PROTONIX) IVP SCH (08:15)
[2019-06-07] MEDS: ADVAIR HFA INH SCH (08:18)
[2019-06-07] MEDS: ENOXAPARIN SODIUM 30 MG/0.3 ML SYRINGE SUBCUT SCH (08:29)
[2019-06-07] MEDS: cefTRIAXone 1 GM in D5W 50 ML IV SCH (10:59)
[2019-06-07] MEDS: FLUCONAZOLE 200 mg/ NS 100 ML IV SCH (12:40)
[2019-06-07] MEDS ORDERED: POTASSIUM CHLORIDE 40 MEQ in 0.45% NS 250 ML IV ONE (15:30)
[2019-06-07] MEDS: TPN CENTRAL IV SCH ×10 (18:01)
[2019-06-07] MEDS: [UNRECOGNIZED DRUG - OTHER] IV SCH ×10 (18:01)
[2019-06-07] MEDS: FAT EMULSIONS 250 ML IV SCH (18:01)
[2019-06-07] MEDS: K PHOS IV SCH ×10 (18:01)
[2019-06-07] MEDS: POTASSIUM CHLORIDE IV SCH ×10 (18:01)
[2019-06-07] MEDS: MONTELUKAST 10 MG TABLET PO SCH (21:14)
[2019-06-08] MEDS: IPRATROPIUM BROM 0.5 MG/2.5 ML VIAL.NEB (ATROVENT) INH SCH ×4 (00:19→19:41)
[2019-06-08] MEDS: ALBUTEROL SULFATE 0.083% 2.5 MG/3 ML VIAL.NEB INH SCH ×4 (00:19→19:41)
[2019-06-08] MEDS: metroNIDAZOLE 500 mg/NS 100 ML IV SCH ×2 (00:22→13:36)
[2019-06-08 00:38] VITALS: BP_SYST 154
[2019-06-08] MEDS: MORPHINE 4 MG/ML INJ. SYRINGE IVP PRN ×3 (03:42→20:12)
[2019-06-08 05:00] LABS: ALBUMIN 1.1 g/dL (3.4-4.8); CALCIUM 7.8 mg/dL (8.4-11.0); CREATININE 0.55 mg/dL (0.55-1.30); PHOSPHORUS 2.9 mg/dL (2.7-4.5); POTASSIUM 3.8 mmol/L (3.5-5.1); TOTAL BILIRUBIN 0.4 mg/dL (0.0-1.0)
[2019-06-08] MEDS: MORPHINE 2 MG/ML INJ. SYRINGE IVP PRN ×5 (05:58→23:45)
[2019-06-08] MEDS: INSULIN REGULAR, HUMAN 100 UNITS/ML, 10 ML VIAL (humuLIN R) SUBCUT PRN ×2 (06:06→12:05)
[2019-06-08 07:05] LABS: BASOPHILS % (AUTO) 0.3 % (0.0-2.0); EOSINOPHILS # (AUTO) 0.1 K/uL (0.0-0.4); EOSINOPHILS % (AUTO) 0.7 % (0.0-4.0); HEMATOCRIT 29.7 % (36-48); HEMOGLOBIN 9.6 g/dL (12.0-16.0); LYMPHOCYTES # (AUTO) 1.3 K/uL (1.0-5.5); LYMPHOCYTES % (AUTO) 9.8 % (20.5-51.5); MEAN CORPUSCULAR HEMOGLOBIN 27 pg (27-31); MEAN CORPUSCULAR HGB CONC 33 % (32-36); MEAN CORPUSCULAR VOLUME 82 fL (79.0-98.0); MONOCYTES # (AUTO) 0.8 K/uL (0.0-1.0); MONOCYTES % (AUTO) 5.9 % (1.7-9.3); NEUTROPHILS # (AUTO) 10.8 K/uL (1.8-7.7); NEUTROPHILS % (AUTO) 83.3 % (40.0-70.0); PLATELET COUNT (AUTO) 306 K/uL (130-430); RED BLOOD CELL COUNT(AUTO) 3.63 MIL/uL (4.2-6.2); RED CELL DISTRIBUTION WIDTH 20.4 % (9.0-15.0)
[2019-06-08 08:00] VITALS: BP_SYST 149
[2019-06-08] MEDS: PANTOPRAZOLE SODIUM 40 MG/VIAL (PROTONIX) IVP SCH (08:51)
[2019-06-08] MEDS: ENOXAPARIN SODIUM 30 MG/0.3 ML SYRINGE SUBCUT SCH (08:52)
[2019-06-08] MEDS ORDERED: FUROSEMIDE 40 MG/4 ML VIAL IVP ONE (09:00)
[2019-06-08] MEDS: ADVAIR HFA INH SCH (09:00)
[2019-06-08] MEDS: ALBUTEROL SULFATE 0.083% 2.5 MG/3 ML VIAL.NEB INH PRN ×2 (11:28→17:58)
[2019-06-08] MEDS: cefTRIAXone 1 GM in D5W 50 ML IV SCH (11:28)
[2019-06-08] MEDS: IPRATROPIUM BROM 0.5 MG/2.5 ML VIAL.NEB (ATROVENT) INH PRN ×2 (11:29→17:58)
[2019-06-08] MEDS: FLUCONAZOLE 200 mg/ NS 100 ML IV SCH (12:14)
[2019-06-08 12:43] VITALS: BP_SYST 154
[2019-06-08 16:22] VITALS: BP_SYST 147
[2019-06-08] MEDS: TPN CENTRAL IV SCH ×10 (17:41)
[2019-06-08] MEDS: FAT EMULSIONS 250 ML IV SCH (17:41)
[2019-06-08] MEDS: POTASSIUM CHLORIDE IV SCH ×10 (17:41)
[2019-06-08] MEDS: K PHOS IV SCH ×10 (17:41)
[2019-06-08] MEDS: [UNRECOGNIZED DRUG - OTHER] IV SCH ×10 (17:41)
[2019-06-08 20:00] VITALS: BP_SYST 147
[2019-06-08] MEDS: MONTELUKAST 10 MG TABLET PO SCH (23:32)
[2019-06-09] MEDS: IPRATROPIUM BROM 0.5 MG/2.5 ML VIAL.NEB (ATROVENT) INH SCH ×4 (00:35→19:26)
[2019-06-09] MEDS: ALBUTEROL SULFATE 0.083% 2.5 MG/3 ML VIAL.NEB INH SCH ×4 (00:35→19:26)
[2019-06-09 00:40] VITALS: BP_SYST 133
[2019-06-09] MEDS: metroNIDAZOLE 500 mg/NS 100 ML IV SCH ×3 (02:02→23:59)
[2019-06-09] MEDS: MORPHINE 2 MG/ML INJ. SYRINGE IVP PRN ×2 (02:09→05:18)
[2019-06-09] MEDS: INSULIN REGULAR, HUMAN 100 UNITS/ML, 10 ML VIAL (humuLIN R) SUBCUT PRN ×2 (06:51→12:08)
[2019-06-09 07:21] LABS: ALBUMIN 1.4 g/dL (3.4-4.8); CALCIUM 8.1 mg/dL (8.4-11.0); CREATININE 0.52 mg/dL (0.55-1.30); PHOSPHORUS 3.3 mg/dL (2.7-4.5); TOTAL BILIRUBIN 0.5 mg/dL (0.0-1.0)
[2019-06-09 07:27] LABS: HEMATOCRIT 32.2 % (36-48); HEMOGLOBIN 10.5 g/dL (12.0-16.0); MEAN CORPUSCULAR HEMOGLOBIN 27 pg (27-31); MEAN CORPUSCULAR HGB CONC 33 % (32-36); MEAN CORPUSCULAR VOLUME 81 fL (79.0-98.0); PLATELET COUNT (AUTO) 406 K/uL (130-430); RED BLOOD CELL COUNT(AUTO) 3.96 MIL/uL (4.2-6.2); RED CELL DISTRIBUTION WIDTH 20.3 % (9.0-15.0); WHITE BLOOD COUNT (AUTO) 13.4 K/uL (4.8-10.8)
[2019-06-09 07:40] VITALS: BP_SYST 155
[2019-06-09] MEDS: PANTOPRAZOLE SODIUM 40 MG/VIAL (PROTONIX) IVP SCH (08:28)
[2019-06-09] MEDS: ENOXAPARIN SODIUM 30 MG/0.3 ML SYRINGE SUBCUT SCH (08:31)
[2019-06-09] MEDS: ADVAIR HFA INH SCH (08:33)
[2019-06-09] MEDS: MORPHINE 4 MG/ML INJ. SYRINGE IVP PRN ×4 (08:44→21:14)
[2019-06-09 09:06] LABS: BAND % (MANUAL) 7 % (0-6); BASOPHILS % (MANUAL) 0 % (0-2); EOSINOPHILS % (MANUAL) 1 % (0-7); LYMPHOCYTES % (MANUAL) 12 % (20-46); MONOCYTES % (MANUAL) 5 % (0-11)
[2019-06-09] MEDS ORDERED: FUROSEMIDE 40 MG/4 ML VIAL IVP ONE (10:30)
[2019-06-09] MEDS: cefTRIAXone 1 GM in D5W 50 ML IV SCH (10:45)
[2019-06-09 11:45] VITALS: BP_SYST 127
[2019-06-09] MEDS: FLUCONAZOLE 200 mg/ NS 100 ML IV SCH (12:06)
[2019-06-09 15:07] VITALS: BP_SYST 133
[2019-06-09] MEDS: FAT EMULSIONS 250 ML IV SCH (17:13)
[2019-06-09] MEDS ORDERED: TPN CENTRAL IV SCH ×10 (18:00)
[2019-06-09] MEDS ORDERED: K PHOS IV SCH ×10 (18:00)
[2019-06-09] MEDS ORDERED: [UNRECOGNIZED DRUG - OTHER] IV SCH ×10 (18:00)
[2019-06-09] MEDS ORDERED: POTASSIUM CHLORIDE IV SCH ×10 (18:00)
[2019-06-09 20:00] VITALS: BP_SYST 148
[2019-06-09] MEDS: MONTELUKAST 10 MG TABLET PO SCH (20:06)
[2019-06-10] MEDS: IPRATROPIUM BROM 0.5 MG/2.5 ML VIAL.NEB (ATROVENT) INH SCH ×4 (01:05→20:01)
[2019-06-10] MEDS: ALBUTEROL SULFATE 0.083% 2.5 MG/3 ML VIAL.NEB INH SCH ×4 (01:05→20:01)
[2019-06-10 01:19] VITALS: BP_SYST 159
[2019-06-10 01:40] VITALS: BP_SYST 142
[2019-06-10] MEDS: MORPHINE 4 MG/ML INJ. SYRINGE IVP PRN ×3 (01:40→22:49)
[2019-06-10] MEDS: LORazepam 2 MG/ML VIAL IVP PRN (03:36)
[2019-06-10 03:45] VITALS: BP_SYST 153
[2019-06-10] MEDS: PANTOPRAZOLE SODIUM 40 MG/VIAL (PROTONIX) IVP SCH (08:25)
[2019-06-10] MEDS: ENOXAPARIN SODIUM 30 MG/0.3 ML SYRINGE SUBCUT SCH (08:38)
[2019-06-10 08:48] LABS: BASOPHILS # (AUTO) 0.1 K/uL (0.0-0.2); BASOPHILS % (AUTO) 0.6 % (0.0-2.0); EOSINOPHILS # (AUTO) 0.1 K/uL (0.0-0.4); EOSINOPHILS % (AUTO) 0.6 % (0.0-4.0); HEMATOCRIT 29.9 % (36-48); HEMOGLOBIN 9.6 g/dL (12.0-16.0); LYMPHOCYTES # (AUTO) 1.6 K/uL (1.0-5.5); LYMPHOCYTES % (AUTO) 11.6 % (20.5-51.5); MEAN CORPUSCULAR HEMOGLOBIN 26 pg (27-31); MEAN CORPUSCULAR HGB CONC 32 % (32-36); MEAN CORPUSCULAR VOLUME 82 fL (79.0-98.0); MONOCYTES # (AUTO) 0.8 K/uL (0.0-1.0); MONOCYTES % (AUTO) 5.8 % (1.7-9.3); NEUTROPHILS # (AUTO) 11.1 K/uL (1.8-7.7); NEUTROPHILS % (AUTO) 81.4 % (40.0-70.0); PLATELET COUNT (AUTO) 467 K/uL (130-430); RED BLOOD CELL COUNT(AUTO) 3.66 MIL/uL (4.2-6.2); RED CELL DISTRIBUTION WIDTH 20.5 % (9.0-15.0); WHITE BLOOD COUNT (AUTO) 13.6 K/uL (4.8-10.8)
[2019-06-10] MEDS: ADVAIR HFA INH SCH (09:00)
[2019-06-10 09:34] LABS: ALBUMIN 1.2 g/dL (3.4-4.8); CALCIUM 8.1 mg/dL (8.4-11.0); CREATININE 0.52 mg/dL (0.55-1.30); PHOSPHORUS 3.2 mg/dL (2.7-4.5); TOTAL BILIRUBIN 0.4 mg/dL (0.0-1.0)
[2019-06-10] MEDS: cefTRIAXone 1 GM in D5W 50 ML IV SCH (10:33)
[2019-06-10] MEDS ORDERED: FLUCONAZOLE 200 mg/ NS 100 ML IV SCH (12:00)
[2019-06-10 12:50] VITALS: BP_SYST 151
[2019-06-10] MEDS: metroNIDAZOLE 500 mg/NS 100 ML IV SCH (13:20)
[2019-06-10] MEDS: MORPHINE 2 MG/ML INJ. SYRINGE IVP PRN ×2 (14:44→18:52)
[2019-06-10 16:49] VITALS: BP_SYST 161
[2019-06-10] MEDS: FAT EMULSIONS 250 ML IV SCH (18:28)
[2019-06-10] MEDS: TPN CENTRAL IV SCH ×10 (18:29)
[2019-06-10] MEDS: MVI IV SCH ×10 (18:29)
[2019-06-10] MEDS: POTASSIUM CHLORIDE IV SCH ×10 (18:29)
[2019-06-10] MEDS: K PHOS IV SCH ×10 (18:29)
[2019-06-10] MEDS: [UNRECOGNIZED DRUG - OTHER] IV SCH ×10 (18:29)
[2019-06-10 20:15] VITALS: BP_SYST 153
[2019-06-10] MEDS: MONTELUKAST 10 MG TABLET PO SCH (21:27)
[2019-06-11] MEDS: LORazepam 2 MG/ML VIAL IVP PRN ×2 (00:23→23:12)
[2019-06-11] MEDS: metroNIDAZOLE 500 mg/NS 100 ML IV SCH (00:26)
[2019-06-11 00:30] VITALS: BP_SYST 154
[2019-06-11] MEDS: ALBUTEROL SULFATE 0.083% 2.5 MG/3 ML VIAL.NEB INH SCH ×5 (01:22→23:48)
[2019-06-11] MEDS: IPRATROPIUM BROM 0.5 MG/2.5 ML VIAL.NEB (ATROVENT) INH SCH ×5 (01:22→23:48)
[2019-06-11] MEDS: MORPHINE 4 MG/ML INJ. SYRINGE IVP PRN ×4 (05:37→21:12)
[2019-06-11 06:42] LABS: BASOPHILS # (AUTO) 0.1 K/uL (0.0-0.2); BASOPHILS % (AUTO) 0.6 % (0.0-2.0); EOSINOPHILS # (AUTO) 0.1 K/uL (0.0-0.4); EOSINOPHILS % (AUTO) 0.6 % (0.0-4.0); HEMATOCRIT 28.4 % (36-48); HEMOGLOBIN 9.4 g/dL (12.0-16.0); LYMPHOCYTES # (AUTO) 1.4 K/uL (1.0-5.5); LYMPHOCYTES % (AUTO) 10.2 % (20.5-51.5); MEAN CORPUSCULAR HEMOGLOBIN 27 pg (27-31); MEAN CORPUSCULAR HGB CONC 33 % (32-36); MEAN CORPUSCULAR VOLUME 82 fL (79.0-98.0); MONOCYTES % (AUTO) 7.1 % (1.7-9.3); NEUTROPHILS # (AUTO) 11.3 K/uL (1.8-7.7); NEUTROPHILS % (AUTO) 81.5 % (40.0-70.0); PLATELET COUNT (AUTO) 499 K/uL (130-430); RED BLOOD CELL COUNT(AUTO) 3.49 MIL/uL (4.2-6.2); RED CELL DISTRIBUTION WIDTH 20.4 % (9.0-15.0); WHITE BLOOD COUNT (AUTO) 13.9 K/uL (4.8-10.8)
[2019-06-11 06:49] LABS: CALCIUM 7.6 mg/dL (8.4-11.0); CREATININE 0.58 mg/dL (0.55-1.30); PHOSPHORUS 3.3 mg/dL (2.7-4.5); POTASSIUM 4.2 mmol/L (3.5-5.1)
[2019-06-11 08:00] VITALS: BP_SYST 140
[2019-06-11] MEDS: ADVAIR HFA INH SCH (08:47)
[2019-06-11] MEDS: PANTOPRAZOLE SODIUM 40 MG/VIAL (PROTONIX) IVP SCH (08:47)
[2019-06-11] MEDS: ENOXAPARIN SODIUM 30 MG/0.3 ML SYRINGE SUBCUT SCH (08:48)
[2019-06-11] MEDS: ALBUTEROL SULFATE 0.083% 2.5 MG/3 ML VIAL.NEB INH PRN (11:19)
[2019-06-11] MEDS: IPRATROPIUM BROM 0.5 MG/2.5 ML VIAL.NEB (ATROVENT) INH PRN (11:19)
[2019-06-11] MEDS: cefTRIAXone 1 GM in D5W 50 ML IV SCH (11:47)
[2019-06-11 12:00] VITALS: BP_SYST 139
[2019-06-11 16:34] VITALS: BP_SYST 154
[2019-06-11] MEDS: [UNRECOGNIZED DRUG - OTHER] IV SCH ×10 (17:54)
[2019-06-11] MEDS: TPN CENTRAL IV SCH ×10 (17:54)
[2019-06-11] MEDS: POTASSIUM CHLORIDE IV SCH ×10 (17:54)
[2019-06-11] MEDS: MVI IV SCH ×10 (17:54)
[2019-06-11] MEDS: K PHOS IV SCH ×10 (17:54)
[2019-06-11] MEDS: FAT EMULSIONS 250 ML IV SCH (17:55)
[2019-06-11 20:00] VITALS: BP_SYST 155
[2019-06-11] MEDS: MONTELUKAST 10 MG TABLET PO SCH (21:02)
[2019-06-12 00:20] VITALS: BP_SYST 143
[2019-06-12] MEDS: MORPHINE 4 MG/ML INJ. SYRINGE IVP PRN ×4 (02:40→21:52)
[2019-06-12] MEDS: IPRATROPIUM BROM 0.5 MG/2.5 ML VIAL.NEB (ATROVENT) INH SCH ×3 (07:14→19:35)
[2019-06-12] MEDS: ALBUTEROL SULFATE 0.083% 2.5 MG/3 ML VIAL.NEB INH SCH ×3 (07:14→19:35)
[2019-06-12 07:20] LABS: BASOPHILS # (AUTO) 0.2 K/uL (0.0-0.2); BASOPHILS % (AUTO) 1.6 % (0.0-2.0); EOSINOPHILS # (AUTO) 0.1 K/uL (0.0-0.4); EOSINOPHILS % (AUTO) 0.6 % (0.0-4.0); HEMATOCRIT 29.1 % (36-48); HEMOGLOBIN 9.5 g/dL (12.0-16.0); LYMPHOCYTES # (AUTO) 1.5 K/uL (1.0-5.5); LYMPHOCYTES % (AUTO) 12.6 % (20.5-51.5); MEAN CORPUSCULAR HEMOGLOBIN 27 pg (27-31); MEAN CORPUSCULAR HGB CONC 33 % (32-36); MEAN CORPUSCULAR VOLUME 82 fL (79.0-98.0); MONOCYTES # (AUTO) 0.9 K/uL (0.0-1.0); MONOCYTES % (AUTO) 7.6 % (1.7-9.3); NEUTROPHILS # (AUTO) 9.3 K/uL (1.8-7.7); NEUTROPHILS % (AUTO) 77.6 % (40.0-70.0); PLATELET COUNT (AUTO) 554 K/uL (130-430); RED BLOOD CELL COUNT(AUTO) 3.56 MIL/uL (4.2-6.2); RED CELL DISTRIBUTION WIDTH 20.2 % (9.0-15.0); WHITE BLOOD COUNT (AUTO) 11.9 K/uL (4.8-10.8)
[2019-06-12 07:24] LABS: CALCIUM 7.9 mg/dL (8.4-11.0); CREATININE 0.52 mg/dL (0.55-1.30); POTASSIUM 4.1 mmol/L (3.5-5.1)
[2019-06-12 08:30] VITALS: BP_SYST 118
[2019-06-12] MEDS: ENOXAPARIN SODIUM 30 MG/0.3 ML SYRINGE SUBCUT SCH (09:05)
[2019-06-12] MEDS: PANTOPRAZOLE SODIUM 40 MG/VIAL (PROTONIX) IVP SCH (09:05)
[2019-06-12] MEDS: ADVAIR HFA INH SCH (09:06)
[2019-06-12 10:44] VITALS: BP_SYST 143
[2019-06-12] MEDS: cefTRIAXone 1 GM in D5W 50 ML IV SCH (12:23)
[2019-06-12 12:30] VITALS: BP_SYST 133
[2019-06-12] MEDS ORDERED: DIATR MEGLU/DIATRIZ SOD 30 ML SOLUTION PO ONE (13:26)
[2019-06-12] MEDS ORDERED: IOHEXOL 100 ML IV ONE (13:26)
[2019-06-12] MEDS: LORazepam 2 MG/ML VIAL IVP PRN ×2 (15:40→23:06)
[2019-06-12 16:20] VITALS: BP_SYST 130
[2019-06-12] MEDS: ALBUTEROL SULFATE 0.083% 2.5 MG/3 ML VIAL.NEB INH PRN (16:24)
[2019-06-12] MEDS: IPRATROPIUM BROM 0.5 MG/2.5 ML VIAL.NEB (ATROVENT) INH PRN (16:24)
[2019-06-12] MEDS: FAT EMULSIONS 250 ML IV SCH (17:38)
[2019-06-12] MEDS ORDERED: K PHOS IV SCH ×10 (18:00)
[2019-06-12] MEDS ORDERED: TPN CENTRAL IV SCH ×10 (18:00)
[2019-06-12] MEDS ORDERED: POTASSIUM CHLORIDE IV SCH ×10 (18:00)
[2019-06-12] MEDS ORDERED: MVI IV SCH ×10 (18:00)
[2019-06-12] MEDS ORDERED: [UNRECOGNIZED DRUG - OTHER] IV SCH ×10 (18:00)
[2019-06-12] MEDS ORDERED: FLUCONAZOLE 200 mg/ NS 100 ML IV SCH (19:00)
[2019-06-12 20:00] VITALS: BP_SYST 132; BP_SYST 135
[2019-06-12] MEDS: MONTELUKAST 10 MG TABLET PO SCH (20:50)
[2019-06-12] MEDS: INSULIN REGULAR, HUMAN 100 UNITS/ML, 10 ML VIAL (humuLIN R) SUBCUT PRN (23:19)
[2019-06-13 00:26] VITALS: BP_SYST 145
[2019-06-13] MEDS: IPRATROPIUM BROM 0.5 MG/2.5 ML VIAL.NEB (ATROVENT) INH SCH ×3 (00:33→16:17)
[2019-06-13] MEDS: ALBUTEROL SULFATE 0.083% 2.5 MG/3 ML VIAL.NEB INH SCH ×3 (00:33→16:17)
[2019-06-13] MEDS: MORPHINE 4 MG/ML INJ. SYRINGE IVP PRN ×4 (02:38→15:32)
[2019-06-13 07:15] LABS: ALBUMIN 1.1 g/dL (3.4-4.8); CALCIUM 7.8 mg/dL (8.4-11.0); CREATININE 0.55 mg/dL (0.55-1.30); PHOSPHORUS 3.1 mg/dL (2.7-4.5); TOTAL BILIRUBIN 0.3 mg/dL (0.0-1.0)
[2019-06-13 07:31] LABS: BASOPHILS # (AUTO) 0.1 K/uL (0.0-0.2); BASOPHILS % (AUTO) 1.3 % (0.0-2.0); EOSINOPHILS # (AUTO) 0.1 K/uL (0.0-0.4); EOSINOPHILS % (AUTO) 0.9 % (0.0-4.0); HEMATOCRIT 26.6 % (36-48); HEMOGLOBIN 8.8 g/dL (12.0-16.0); LYMPHOCYTES # (AUTO) 1.3 K/uL (1.0-5.5); LYMPHOCYTES % (AUTO) 12.2 % (20.5-51.5); MEAN CORPUSCULAR HEMOGLOBIN 27 pg (27-31); MEAN CORPUSCULAR HGB CONC 33 % (32-36); MEAN CORPUSCULAR VOLUME 82 fL (79.0-98.0); MONOCYTES # (AUTO) 1.1 K/uL (0.0-1.0); MONOCYTES % (AUTO) 10.4 % (1.7-9.3); NEUTROPHILS % (AUTO) 75.2 % (40.0-70.0); PLATELET COUNT (AUTO) 495 K/uL (130-430); RED BLOOD CELL COUNT(AUTO) 3.26 MIL/uL (4.2-6.2); RED CELL DISTRIBUTION WIDTH 20.2 % (9.0-15.0); WHITE BLOOD COUNT (AUTO) 10.6 K/uL (4.8-10.8)
[2019-06-13 08:00] VITALS: BP_SYST 136
[2019-06-13] MEDS: ADVAIR HFA INH SCH (08:30)
[2019-06-13] MEDS: PANTOPRAZOLE SODIUM 40 MG/VIAL (PROTONIX) IVP SCH (08:31)
[2019-06-13] MEDS: ENOXAPARIN SODIUM 30 MG/0.3 ML SYRINGE SUBCUT SCH (08:31)
[2019-06-13] MEDS: cefTRIAXone 1 GM in D5W 50 ML IV SCH (11:15)
[2019-06-13 12:33] VITALS: BP_SYST 130
[2019-06-13] MEDS ORDERED: MEROPENEM 1 GM in NS 100 ML IV SCH (14:00)
[2019-06-13 15:43] VITALS: BP_SYST 133
[2019-06-13 16:26] VITALS: BP_SYST 133
[2019-06-13] MEDS ORDERED: [UNRECOGNIZED DRUG - OTHER] IV SCH ×10 (18:00)
[2019-06-13] MEDS ORDERED: TPN CENTRAL IV SCH ×10 (18:00)
[2019-06-13] MEDS ORDERED: SODIUM CHLORIDE IV SCH ×10 (18:00)
[2019-06-13] MEDS ORDERED: POTASSIUM CHLORIDE IV SCH ×10 (18:00)
== END 2019-06-13 16:55 | disposition short-term general hospital (02) | DRG 329 ==
LOC: SMU 06:15 → STU 16:57 → SMU 05-30 19:03 → SIC 06-02 16:40 → SMU 06-05 12:05
PROVIDERS: ADMIT Colon & Rectal Surgery; ATTEND Colon & Rectal Surgery
PROC: 0DTG0ZZ Resection of Left Large Intestine, Open Approach (ICD-10-PCS; 2019-05-28)
PROC: 0DN80ZZ Release Small Intestine, Open Approach (ICD-10-PCS; 2019-05-28)
PROC: 0DNU0ZZ Release Omentum, Open Approach (ICD-10-PCS; 2019-05-28)
PROC: 0DTJ0ZZ Resection of Appendix, Open Approach (ICD-10-PCS; principal; 2019-05-28 08:40)
PROC: 0DQE0ZZ Repair Large Intestine, Open Approach (ICD-10-PCS; 2019-06-02)
PROC: 30233N1 Transfusion of Nonautologous Red Blood Cells into Peripheral Vein, Percutaneous Approach (ICD-10-PCS; 2019-06-03)
DX: K57.80 Diverticulitis of intestine, part unspecified, with perforation and abscess without bleeding (principal); A41.9 Sepsis, unspecified organism; K65.9 Peritonitis, unspecified; E43 Unspecified severe protein-calorie malnutrition; N17.0 Acute kidney failure with tubular necrosis; J18.9 Pneumonia, unspecified organism; J96.00 Acute respiratory failure, unspecified whether with hypoxia or hypercapnia; J91.8 Pleural effusion in other conditions classified elsewhere; K55.9 Vascular disorder of intestine, unspecified; K56.7 Ileus, unspecified; K94.03 Colostomy malfunction; R50.82 Postprocedural fever; Y83.8 Other surgical procedures as the cause of abnormal reaction of the patient, or of later complication, without mention of misadventure at the time of the procedure; K66.0 Peritoneal adhesions (postprocedural) (postinfection); D64.9 Anemia, unspecified; E88.09 Other disorders of plasma-protein metabolism, not elsewhere classified; J45.909 Unspecified asthma, uncomplicated; M19.90 Unspecified osteoarthritis, unspecified site; E66.9 Obesity, unspecified; Z98.0 Intestinal bypass and anastomosis status; Z98.84 Bariatric surgery status; Z68.36 Body mass index [BMI] 36.0-36.9, adult; Y92.230 Patient room in hospital as the place of occurrence of the external cause
CPT/HCPCS: 36415; 36600; 71045; 80048; 80053; 81000-TC; 82803-TC; 82962; 83735-TC; 84100-TC; 84478-TC; 85007; 85018-TC; 85025; 85027; 85610-TC; 85730-TC; 86886; 86900; 86901; 86920; 87070-TC; 87081; 87205-TC; 88304; 88305; 88307; 93005; 93971; 94002; 94003; 94010; 94640; 94760; 97110-GP; 97116-GP; 97530-GP; C1751; C9113; G0378; J0171; J0360; J0610; J0690; J0694; J0696; J1170; J1450; J1650; J1815; J1885; J1940; J2060; J2185; J2250; J2270; J2370; J2405; J2543; J2704; J2765; J3010; J3475; J3480; J3490; J7030; J7040; J7050; J7060; J7120; J7131; J7613; P9021; Q9964; Q9967